=== PATIENT | male | born 2000 | race Caucasian/White ===

== ENCOUNTER 2021-01-16 06:09 | Emergency (ER) | payer OTHER ==
[~2021-01-16] VITALS: Ht 175.3 cm; Wt 71.7 kg
[2021-01-16] MEDS ORDERED: DIPH50CA PO (06:14)
[2021-01-16] MEDS ORDERED: PRED20TA PO (08:01)
[2021-01-16] MEDS ORDERED: predniSONE 20 MG TAB PO ONE (08:05)
[2021-01-16 08:19] VITALS: BP 132/76
== END 2021-01-16 08:22 | disposition home or self-care (01) ==
LOC: M ED 06:09
DX: L50.9 Urticaria, unspecified (principal)
CPT/HCPCS: 99283; J7512

== ENCOUNTER 2021-01-20 13:13 | Emergency (ER) | payer OTHER ==
[~2021-01-20] VITALS: Ht 175.3 cm; Wt 74.4 kg
[~2021-01-20 13:13] MED LIST: DIPH50CA PO; PRED20TA PO
[2021-01-20] MEDS ORDERED: EPIP0.3I2 IM (13:33)
[2021-01-20] MEDS ORDERED: predniSONE 20 MG TAB PO ONE (14:20)
[2021-01-20 14:36] LABS: BASO % 0.2 % (0.0-1.0); EOS # 0.1 10^3/uL (0.0-0.5); EOS % 1.2 % (0.0-3.0); HEMATOCRIT 40.1 % (42.0-52.0); HEMOGLOBIN 14.1 g/dl (13.5-17.5); LYMPH # 1.2 10^3/uL (1.5-5.0); LYMPH % 27.6 % (24.0-44.0); MEAN CORPUSCULAR HEMOGLOBIN 31.1 pg (27.0-33.0); MEAN CORPUSCULAR HGB CONC 35.2 g/dl (32.0-36.5); MEAN CORPUSCULAR VOLUME 88.5 fl (80.0-96.0); MONO # 0.5 10^3/uL (0.0-0.8); MONO % 11.9 % (2.0-8.0); NEUTROPHILS # 2.5 10^3/uL (1.5-8.5); NEUTROPHILS % 58.6 % (36.0-66.0); PLATELET COUNT, AUTOMATED 198 10^3/uL (150-450); RED BLOOD COUNT 4.53 10^6/uL (4.30-6.10); WHITE BLOOD COUNT 4.3 10^3/uL (4.0-10.0)
[2021-01-20 14:38] VITALS: BP 125/63
[2021-01-20 15:04] LABS: BLOOD UREA NITROGEN 8 MG/DL (7-18); CALCIUM LEVEL 8.3 MG/DL (8.5-10.1); CARBON DIOXIDE LEVEL 31 MEQ/L (21-32); CHLORIDE LEVEL 110 MEQ/L (98-107); CREATININE FOR GFR 1.09 MG/DL (0.70-1.30); GLOMERULAR FILTRATION RATE > 60.0 (>60); GLUCOSE, FASTING 101 MG/DL (70-100); POTASSIUM SERUM 3.6 MEQ/L (3.5-5.1); SODIUM LEVEL 144 MEQ/L (136-145)
--- NOTE | 2021-01-21 13:42 | ECGEPIP ---
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
== END 2021-01-20 16:32 | disposition home or self-care (01) ==
LOC: M ED 14:23
DX: T78.40XA Allergy, unspecified, initial encounter (principal); R00.1 Bradycardia, unspecified
CPT/HCPCS: 36415; 80048; 85025; 93005; 93041; 94760; 99284; J7512

== ENCOUNTER 2021-01-21 23:44 | Emergency (ER) | payer OTHER ==
[~2021-01-21] VITALS: Ht 175.3 cm; Wt 70.5 kg
[~2021-01-21 23:44] MED LIST changes: +EPIP0.3I2 IM
[2021-01-21 23:45] VITALS: BP 133/59
== END 2021-01-22 02:09 | disposition home or self-care (01) ==
LOC: M ED 23:44
DX: T78.40XA Allergy, unspecified, initial encounter (principal); R22.1 Localized swelling, mass and lump, neck